=== PATIENT | female | born 1935 | race Caucasian/White ===

== ENCOUNTER 2024-10-24 09:49 | Outpatient (REF) | payer BC, SELFPAY ==
--- OUTSIDE RECORDS SUMMARY | 2024-10-24 12:42 | XMS_ITS ---
Continuity of Care Document (CCD) Created on: October 24, 2024 Sirisha Newton External Reference #: [id number] : [id number] Sex: Female Author Organization [facility] Address [address] [place] [address] Phone [phone] Care Team Providers Care Graphic User Interface Designer Name Role Phone Kenzi. ABRAHAM Singh Care Team Information Plane Captain [phone] Problems Active Problems Provider Date Gastroesophageal reflux [...] Qnty Indications Ordering Provider Date Albuterol Sulfate DND081(90Base) mcg/Act Aerosol Inhale 2 Puffs By Mouth Four Times Daily as Needed For Wheezing Or Shortness Of Unknown Amlodipine Qxywttaf5ge Tablets Take 1 Tablet By Mouth Every Day Unknown Atorvastatin Sadqgby84zi Tablets Take 1 Tablet By Mouth Daily Unknown Umtnmuluqa7po Tablets Take 1 Tablet By Mouth Daily Unknown Metoprolol Succinate ER50mg Tablets ER 24HR Take 1 Tablet By Mouth Daily Unknown Sertraline JYV08kv Tablets Take 1 Tablet By Mouth Daily Kenzi. ABRAHAM Singh Levothyroxine Zdvgwe09ilp Tablets Take 1 Tablet By Mouth Daily Rima Singh. Vital Signs Date Vital Result Comment 07/27/2023 10:45am BP Systolic 130 mmHg BP Diastolic 68 mmHg Heart Rate 83 /min Height 61 inches 5'1 Weight 152.50 lb BMI (Body Mass Index) 28.8 kg/m2 Results Test Acquired Date Facility Test Result H/L Range N ote Calcium 07/27/2023 [facility] Calcium 9.6 mg/dL (8.6-10.5) 25Oh Vitamin D 07/27/2023 [facility] 25Oh Vitamin D 43.4 NG/ML (20-50) Albumin 07/27/2023 [facility] Albumin 4.4 GM/DL (3.4-4.8) Medical [...] N18.9 Chronic kidney disease, unspecified* New Labs:* Qegrx-Ti-Orbbw, Ordered: 07/27/23 * Utvbdwv-Pq-Tsywj, Ordered: 07/27/23 Functional Status Description No Information Available Mental Status Description No Information Available Referrals Description No Information Available
--- OUTSIDE RECORDS SUMMARY | 2024-10-24 12:42 | XMS_ITS | Clinical Summary ---
Author Organization [facility] Address [address] [address] Phone Care Team Providers Care Manager Book Name Role Phone Jamari Lyman MD Primary Care Provider [phone] Allergies Active Allergy Reactions Criticality Noted Date [...] Information Patient not taking.Reported on 05/05/2024 cloNIDine (Inlijmrl-YLR-8 ) 0.1 MG/24HR patch weekly Place 1 [...] Orders Only [facility] [address] [address] Bryson Lozada MD Chronic kidney [...] Office Visit [facility] [address] [address] Bryson Lozada MD [address] [address] Health Maintenance Due Date Last Done Comments Influenza Vaccine (Season Ended) 2025 Pneumococcal Vaccine: 50+ Years Completed 04/27/2016, 12/27/2014, 08/13/2004 Hepatitis B Vaccine Aged Out No longe r eligible based on patient's age to complete this topic Insurance Medicare [facility] Medicare [facility] Care Teams Manager Book Relationship Specialty Start Date End Date Jamari Lyman MD [address] [place] [address] PCP - General Internal Medicine 10/29/23
[2024-10-24 14:07] LABS: MANUAL DIFF FLAG NO
[2024-10-24 14:12] LABS: Basophils Absolute Auto 0.1 X10*3/uL (0.0-0.2); Basophils Percent Auto 0.9 % (0-2); Eosinophils Absolute Auto 0.3 X10*3/uL (0.0-0.4); Hematocrit 43.6 % (37.0-47.0); Imm Gran Pct Auto 1.3 % (0.0-0.4); Lymphocytes Absolute Auto 1.6 X10*3/uL (1.2-4.9); Lymphocytes Percent Auto 20.7 % (20-40); Mean Corpuscular HGB Conc 32.1 g/dl (31.0-35.0); Mean Corpuscular Hemoglobin 31.5 pg (27.0-33.0); Mean Corpuscular Volume 98.2 fL (80.0-98.0); Mean Platelet Volume 10.9 fL (9.4-12.3); Monocytes Absolute Auto 0.5 X10*3/uL (0.1-1.2); Neutrophils Absolute Auto 5.1 x10*3/uL (2.0-8.3); Neutrophils Percent Auto 66.1 % (45-73); Platelet Count 316 X10*3/uL (160-400); Red Blood Count 4.44 X10*6/uL (4.20-5.50); Red Cell Distribution Width 13.2 % (11.0-16.0); White Blood Count 7.7 X10*3/uL (4.8-10.8)
[2024-10-24 14:22] LABS: Estimated Average Glucose 131 mg/dL; Hemoglobin A1C 162.5293 umol/L; Hemoglobin A1c % 6.2 % (<6.0); Total Hemoglobin (HGBA1C) 3718.7342 umol/L
[2024-10-24 14:55] LABS: Alanine Aminotransferase 27 U/L (0-31); Anion Gap 13 (12-20); Aspartate Amino Transferase 32 U/L (5-31); Bilirubin Total 0.5 mg/dL (0.0-1.0); Blood Urea Nitrogen 19 mg/dL (9-16); Calcium 9.2 mg/dL (8.4-10.2); Carbon Dioxide 28 mmol/L (22-29); Chloride 105 mmol/L (96-108); Cholesterol 174 mg/dL (<200); Estimated Glomerular Filt Rate 25; Glucose Random 110 mg/dL (60-115); HDL Cholesterol 53 mg/dL (>40); LDL Cholesterol Calculated 82 mg/dL (<100); Potassium 4.5 mmol/L (3.3-5.1); Sodium 141 mmol/L (135-145); TSH reflex Free T4 5.67 uIU/mL (0.32-4.0); Total Protein 7.4 g/dL (6.5-8.0); Triglycerides 197 mg/dL (<150)
[2024-10-24 15:08] LABS: Alkaline Phosphatase 93 U/L (39-117)
[2024-10-24 15:35] LABS: Free T4 (Free Thyroxine) 0.97 ng/dL (0.71-1.85)
== END 2024-10-24 09:50 | disposition home or self-care (01) ==
LOC: HO.WFDLDS 09:49
PROVIDERS: Visit Provider Internal Medicine
DX: Z76.89 Persons encountering health services in other specified circumstances (principal); I12.9 Hypertensive chronic kidney disease with stage 1 through stage 4 chronic kidney disease, or unspecified chronic kidney disease; E11.22 Type 2 diabetes mellitus with diabetic chronic kidney disease; N18.4 Chronic kidney disease, stage 4 (severe); M54.50 Low back pain, unspecified; G89.29 Other chronic pain; F41.9 Anxiety disorder, unspecified; J44.9 Chronic obstructive pulmonary disease, unspecified; E03.9 Hypothyroidism, unspecified; I25.10 Atherosclerotic heart disease of native coronary artery without angina pectoris; E78.5 Hyperlipidemia, unspecified; Z79.899 Other long term (current) drug therapy
CPT/HCPCS: 36415; 80053; 80061; 83036; 84439; 84443; 85025; 96127

== ENCOUNTER 2024-10-24 09:49 | Outpatient (AMB) | payer BC, SELFPAY ==
--- NOTE | 2024-10-24 09:51 | A.OFFPC_ITS ---
Vital Signs 10/24/24 09:54 Height 5 ft 1.42 in Weight 160 lb BMI 29.8 BP 110/64 Blood Pressure Location Lt brachial Position Sitting Respiration 14 Pulse 68 Pulse Source Pulse Oximeter Temp 98 F Temp Source Oral Pulse Oximetry (%) 94 Oxygen Delivery Method Room Air Intake Visit Reasons: [facility] Intake Note: New patient visit Composition Board Press Operator Required: No Allergies Sulfa (Sulfonamide Antibiotics) Allergy (Unknown, Verified 10/24/24 09:55) Rash Tobacco use date assessed: 10/24/24 Fall risk assessment: No Falls in past year Last assessed Fall Risk: 10/24/24 Dental Screening Dental Screen Date: 10/24/24 Did you have a dental visit in the last 12 months?: Yes Did you have a dental problem in the last 6 months where you did not have access to dental care?: No Was dental information given to patient?: Patient has dentist HPI HPI Comments History of Present Illness Details The patient is an 89 year old female with a past medical history of CAD, MVR, diabetes, CKD stage 4, hyperlipidemia, hypothyroid, COPD, anxiety presenting to reestablish care. Transfer from [facility] CV: Follows with cardiology, Dr Moscoso. History of [place] in 2008. On lipitor, NTG prn, ASA 81, losartan, toprol. Denies chest pain Diabetes: Last A1C 6.6%. CKD followed by Dr Lozada. Secondary hypoparathyroid. COPD: Stable. Not on any medications. Follows with Dr Mcgarry. Hypothyroid-Stable on levothyroxine 50mcg daily -, 100mcg Thursday Has some chronic balance issues. Sometime using cane, walker Anxiety-stable on zoloft Increased low back pain. Makes it difficult for her to walk more than a block to two blocks RSV, Flu vaccine UTD ROS CONSTITUTIONAL: Denies weight loss, fever and chills. HEENT: Denies changes in vision and hearing. RESPIRATORY: Denies SOB and cough. CV: Denies palpitations and CP GI: Denies abdominal pain, nausea, vomiting and diarrhea. : Denies dysuria and urinary frequency. MSK: see HPI SKIN: Denies rash and pruritus. NEUROLOGICAL: Denies headache PSYCHIATRIC: Denies recent changes in mood. PHYSICAL EXAM: GENERAL: Alert and oriented x 3. NAD EYES: EOMI. Anicteric. HENT: Moist mucous membranes. No scleral icterus. No cervical lymphadenopathy. LUNGS: Clear to auscultation bilaterally. CARDIOVASCULAR: Regular rate and rhythm. No murmur. No JVD. ABDOMEN: Soft, non-tender +bs EXTREMITIES: No edema. Non-tender. SKIN: No rashes or lesions. Warm. NEUROLOGIC: No focal neurological deficits. CN II-XII grossly intact PSYCHIATRIC: Cooperative. Appropriate mood and affect [facility] Surgical History H/O heart artery stent H/O tubal ligation Family History Mother Heart attack HTN (hypertension) Father Heart attack Alcoholic Son Diabetes Other Substance abuse Social History Housing: Apartment Alcohol intake: never Patient Tobacco Use Status: Former Tobacco user Cigarette Packs Per Day: 2 Years Smoked: 55 e-Cigarette/Vaping Use: Never Used Second Hand Smoke Exposure: No service: No Current occupational status: retired Cognitive needs: No Hearing needs: Yes (has hearing aids, but is not wearing them) Vision needs: Yes (glasses) Questionnaire PHQ-9 Over the last 2 weeks, how often have you been bothered by any of the following problems? 1. Little interest or pleasure in doing things: not at all 2. Feeling down, depressed, or hopeless: not at all 3. Trouble falling or staying asleep, or sleeping too much: several days 4. Feeling tired or having little energy: more than half the days 5. Poor appetite or overeating: more than half the days 6. Feeling bad about yourself - or that you are a failure or have let yourself or your family down: not at all 7. Trouble concentrating on things, such as reading the newspaper or watching television: not at all 8. Moving or speaking so slowly that other people could have noticed. Or the opposite - being so fidgety or restless that you have been moving around a lot more than usual: not at all 9. Thoughts that you would be better off or of hurting yourself in some way: not at all Total score: 5 Depression Screening Interpretation: Positive Depression Screening Follow-up: Existing condition Depression Screening Done: Yes 11908 - PHQ-9 Billing: Yes Source: Developed by Drs. Serafin Noguera, Mark Colon and colleagues, with an educational milagros from [employer]. Thrive Questionnaire Date Thrive assessed: 10/24/24 I am a: Patient What is your living situation today?: I have a steady place to live Within the past 12 months, did the food you bought not last and you didn't have the money to get more?: Never true Within the past 12 months, did you worry whether your food would run out before you got money to buy more?: Never true Do you have trouble paying for medicines?: No Do you have trouble getting transportation to medical appointments?: No Do you have trouble paying your heating and electricity bill?: No Do you have trouble taking care of your child, family member or friend?: No Do you have trouble with day-to-day activities such as bathing, preparing meals, shopping, managing finances, etc.?: No Are you currently unemployed and looking for a job?: No Are you interested in more education?: No Please select the resources that you would like help with: None Currently or been in a relationship where the following occur: No concerns reported THRIVE Score: 0 AUDIT C Alcohol Use Questionnaire (AUDIT-C) 1. How often do you have a drink containing alcohol?: Never 3. How often do you have six or more drinks on one occasion?: Never Total Score: 0 HOLLI-7 AMB Questionnaire HOLLI-7 Date HOLLI - 7 assessed: 10/24/24 Feeling nervous, anxious, or on edge: 0 = Not at all Not being able to stop or control worryin = Not at all Worrying too much about different things: 0 = Not at all Trouble relaxin = Not at all Being so restless that it is hard to sit still: 0 = Not at all Becoming easily annoyed or irritable: 0 = Not at all Feeling afraid as if something awful might happen: 0 = Not at all Total HOLLI-7 score (0-4 normal; 5-9 mild; 10-14 moderate; 15-21 severe): 0 Source: Developed by Amna Lopez Kurt Kroenke and colleagues, with an educational milagros from [employer]. HOLLI-7 Assessment Billing HOLLI-7 Assessment Tool: HOLLI-7 Assessment 20557 Physical exam (Primary Care) Vital Signs: Last Vital Signs Temp 98 F 10/24/24 09:54 Pulse 68 10/24/24 09:54 Resp 14 10/24/24 09:54 BP 110/64 10/24/24 09:54 Pulse Ox 94 10/24/24 09:54 Oxygen Delivery Method Room Air 10/24/24 09:54 BMI result Body Mass Index 29.8 Tobacco/Smoking Status: Tobacco use Status Tobacco use date assessed 10/24/24 10/24/24 09:53 Patient Tobacco Use Status Former Tobacco user 10/24/24 10:04 e-Cigarette/Vaping Use Never Used 10/24/24 10:04 PHQ-9: PHQ-9 Score PHQ-9: Total score 5 10/24/24 10:06 Depression Screening Interpretation: Positive Depression Screening Follow-up: Existing condition Thrive Assessment: Date of Thrive Assessment Date Thrive assessed 10/24/24 10/24/24 10:04 Currently or been in a relationship where the following occur: No concerns reported Coding Level of Care Code Est Pt Level 4 (23515) Complex EM visit Add On G2211 Diagnoses Primary hypertension I10 Hypertension type: primary hypertension Type 2 diabetes mellitus with stage 4 chronic kidney disease, without long-term current use of insulin E11.22; N18.4 Diabetes mellitus type: type 2 Diabetes mellitus snf insulin use: without snf use Diabetes mellitus complication status: with kidney complications Diabetes mellitus complication detail: with chronic kidney disease Chronic kidney disease stage: stage 4 (GFR 15-29) CKD stage 4 due to type 2 diabetes mellitus E11.22; N18.4 Chronic low back pain, unspecified back pain laterality, unspecified whether sciatica present M54.50; G89.29 Chronicity: chronic Back pain laterality: unspecified Sciatica presence: unspecified whether sciatica present Additional Codes HOLLI-7 Assessment Billing - HOLLI-7 Assessment Tool: HOLLI-7 Assessment 62473 ([id number]) PHQ-9 - 10417 - PHQ-9 Billing: Yes ([id number]) Assessment & Plan Assessment & Plan (1) Hypertension: Code(s): I10 - Essential (primary) hypertension Category: Medical Qualifiers: Hypertension type: primary hypertension Qualified Code(s): I10 - Essential (primary) hypertension (2) Diabetes: Code(s): E11.9 - Type 2 diabetes mellitus without complications Category: Medical Qualifiers: Diabetes mellitus type: type 2 Diabetes mellitus snf insulin use: without snf use Diabetes mellitus complication status: with kidney complications Diabetes mellitus complication detail: with chronic kidney disease Chronic kidney disease stage: stage 4 (GFR 15-29) Qualified Code(s): E11.22 - Type 2 diabetes mellitus with diabetic chronic kidney disease; N18.4 - Chronic kidney disease, stage 4 (severe) (3) CKD stage 4 due to type 2 diabetes mellitus: Code(s): E11.22 - Type 2 diabetes mellitus with diabetic chronic kidney disease; N18.4 - Chronic kidney disease, stage 4 (severe) Category: Medical (4) Low back pain: Code(s): M54.50 - Low back pain, unspecified Category: Medical Qualifiers: Chronicity: chronic Back pain laterality: unspecified Sciatica presence: unspecified whether sciatica present Qualified Code(s): M54.50 - Low back pain, unspecified; G89.29 - Other chronic pain Plan 89 year old to reestablish care Anxiety/depression-stable on zoloft TSH normal Dec-recheck Diabetes-has not required treatment CAD-stable without angina. continue current medications. Monitor K Orders: Orders PT Evaluation and Treatment Today M54.50 - Low back pain, unspecified Complete Blood Count Auto Diff Today E03.9 - Hypothyroidism, unspecified, E11.22 - Type 2 diabetes mellitus with diabetic chronic kidney disease, E11.9 - Type 2 diabetes mellitus without complications, E78.5 - Hyperlipidemia, unspecified, I10 - Essential (primary) hypertension, I25.10 - Atherosclerotic heart disease of [place] coronary artery without angina pectoris, N18.4 - Chronic kidney disease, stage 4 (severe) Comprehensive Met. Panel Today E03.9 - Hypothyroidism, unspecified, E11.22 - Type 2 diabetes mellitus with diabetic chronic kidney disease, E11.9 - Type 2 diabetes mellitus without complications, E78.5 - Hyperlipidemia, unspecified, I10 - Essential (primary) hypertension, I25.10 - Atherosclerotic heart disease of [place] coronary artery without angina pectoris, N18.4 - Chronic kidney disease, stage 4 (severe) Lipid Panel Today E03.9 - Hypothyroidism, unspecified, E11.22 - Type 2 diabetes mellitus with diabetic chronic kidney disease, E11.9 - Type 2 diabetes mellitus without complications, E78.5 - Hyperlipidemia, unspecified, I10 - Essential (primary) hypertension, I25.10 - Atherosclerotic heart disease of [place] coronary artery without angina pectoris, N18.4 - Chronic kidney disease, stage 4 (severe) TSH reflex Free T4 Today E03.9 - Hypothyroidism, unspecified, E11.22 - Type 2 diabetes mellitus with diabetic chronic kidney disease, E11.9 - Type 2 diabetes mellitus without complications, E78.5 - Hyperlipidemia, unspecified, I10 - Essential (primary) hypertension, I25.10 - Atherosclerotic heart disease of [place] coronary artery without angina pectoris, N18.4 - Chronic kidney disease, stage 4 (severe) Hemoglobin A1c Today E03.9 - Hypothyroidism, unspecified, E11.22 - Type 2 diabetes mellitus with diabetic chronic kidney disease, E11.9 - Type 2 diabetes mellitus without complications, E78.5 - Hyperlipidemia, unspecified, I10 - Essential (primary) hypertension, I25.10 - Atherosclerotic heart disease of [place] coronary artery without angina pectoris, N18.4 - Chronic kidney disease, stage 4 (severe) Medications: New sertraline 50 mg PO DAILY 90 tabs 3RF levothyroxine 50 mcg PO DAILY 90 tabs 3RF metoprolol succinate ER 50 mg PO DAILY 90 tabs 3RF levothyroxine Take 1 tab oral Thu thru Thursday. Take 2 tab oral once weekly on Thursday 102 tabs 3RF
[2024-10-24 09:54] VITALS: BP 110/64; PULSE 68; RESP 14; TEMP 36.6; O2SAT 94; BMI 29.8
--- OUTSIDE RECORDS SUMMARY | 2024-10-24 11:10 | XMS_ITS | Continuity of Care Document ---
Author Organization [facility] Address [address] [place] [address] Phone [phone] Care Team Providers Care Escrow Agent Name Role Phone Kenzi. ABRAHAM Singh Care Team Information Mid Level Project Manager [phone] Problems Active Problems Provider Date Gastroesophageal reflux disease ALEK Mann Onset: 07/27/2023 Impairment of balance ALEK Mann Onset: 07/27/2023 Chronic obstructive lung disease ALEK Mann Onset: 07/27/2023 Chronic kidney disease ALEK Mann Onset: 07/27/2023 Hyperlipidemia ALEK Mann Onset: 2023 Essential hypertension ALEK Mann Onset: 07/27/2023 Prediabetes ALEK Mann Onset: 2023 Social History Type Date Description Comments Sex Unknown ETOH Use Denies alcohol use Tobacco Use Start: Unknown End: Unknown Patient is a former smoker Allergies and adverse reactions Active Allergies Criticality Reaction Severity Comments Date Sulfadiazine Unable to assess criticality 07/27/2023 Medications Active Medications SIG Qnty Indications Ordering Provider Date Albuterol Sulfate CKM243(90Base) mcg/Act Aerosol Inhale 2 Puffs By Mouth Four Times Daily as Needed For Wheezing Or Shortness Of Unknown Amlodipine Brrtjxlo7vj Tablets Take 1 Tablet By Mouth Every Day Unknown Atorvastatin Xeigfbh53dn Tablets Take 1 Tablet By Mouth Daily Unknown Hrfwpcbbrw1eu Tablets Take 1 Tablet By Mouth Daily Unknown Metoprolol Succinate ER50mg Tablets ER 24HR Take 1 Tablet By Mouth Daily Unknown Sertraline QQE48uv Tablets Take 1 Tablet By Mouth Daily Kenzi. ABRAHAM Singh Levothyroxine Njibqr05ssj Tablets Take 1 Tablet By Mouth Daily Rima Singh. Vital Signs Date Vital Result Comment 07/27/2023 10:45am BP Systolic 130 mmHg BP Diastolic 68 mmHg Heart Rate 83 /min Height 61 inches 5'1 Weight 152.50 lb BMI (Body Mass Index) 28.8 kg/m2 Results Test Acquired Date Facility Test Result H/L Range N ote Calcium 07/27/2023 [facility] Calcium 9.6 mg/dL (8.6-10.5) 25Oh Vitamin D 07/27/2023 [facility] 25Oh Vitamin D 43.4 NG/ML (20-50) Albumin 07/27/2023 [facility] Albumin 4.4 GM/DL (3.4-4.8) Medical Devices Description No Information Available Encounters Type Date Location Provider Dx Diagnosis Office Visit 07/27/2023 10:30a Main Office ALEK Mann E21.3 Hyperparathyr oidism, unspecified N18.9 Chronic kidney disea se, unspecified Assessments Date Code Description Provider 07/27/2023 E21.3 Hyperparathyroidism, unspeci fied ALEK Mann 07/27/2023 N18.9 Chronic kidney disease, unsp ecified ALEK Mann Plan of Treatment 07/27/2023 - ALEK Mann* E21.3 Hyperparathyroidism, unspecified * N18.9 Chronic kidney disease, unspecified* New Labs:* Whsre-Ty-Jpxji, Ordered: 07/27/23 * Dgdeojk-Bj-Eplox, Ordered: 07/27/23 Functional Status Description No Information Available Mental Status Description No Information Available Referrals Description No Information Available
--- OUTSIDE RECORDS SUMMARY | 2024-10-24 11:10 | XMS_ITS | Clinical Summary ---
Author Organization [facility] Address [address] [address] Phone Care Team Providers Care Dry End Tester Name Role Phone Jamari Lyman MD Primary Care Provider [phone] Allergies Active Allergy Reactions Criticality Noted Date Comments Sulfa Antibiotics 11/25/2022 Medications aspirin (ST HOOD) 81 MG EC tablet Take 81 mg by mouth 1 (one) time each day Active atorvastatin (LIPITOR) 40 MG tablet Take 40 mg by mouth 1 (one) time each day Active LEVOTHYROXINE SODIUM PO Take 0.025 mcg by mouth 1 (one) time each day Active meclizine (ANTIVERT) 25 MG tablet Take 12.5 mg by mouth 3 (three) times a day if needed for dizziness Active metoprolol succinate XL (TOPROL XL) 50 MG 24 hr tablet Take 50 mg by mouth 1 (one) time each day Do not crush or chew. Active Multiple Vitamin (multivitamin) tablet Take 1 tablet by mouth 1 (one) time each day Active nitroglycerin (NITROSTAT) 0.[address] 0.4 mg under the tongue every 5 (five) minutes if needed for chest pain Active sertraline (ZOLOFT) 50 MG tablet Take 50 mg by mouth 1 (one) time each day Active Cholecalciferol (Vitamin D) 25 MCG (1000 UT) tablet Take 1,000 mcg by mouth 1 (one) time each day Active furosemide (LASIX) 20 MG tablet Take 20 mg by mouth in the morning and 20 mg in the evening. Active amLODIPine (NORVASC) 5 MG tablet Take 1 tablet (5 mg total) by mouth 1 (one) time each day 90 tablet 3 4 10/29/19 25 Active Additional Information Patient not taking.Reported on 05/05/2024 cloNIDine (Ksgqnkby-GXT-5 ) 0.1 MG/24HR patch weekly Place 1 patch on the skin per week 13 patch 3 Active Active Problems Problem Noted Date Diagnosed Date Hypothyroidism 10/29/2023 Chronic kidney disease, stage 4 (severe) 024 Hypertensive heart and chron ic kidney disease without heart failure, with stage 1 through stage 4 chronic kidney disease, or unspecified chronic kidney disease 10/29/2023 Edema 10/29/2023 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/29/2023 Encounters Date Type Department Care Team Description 09/15/2024 Orders Only [facility] [address] [address] Bryson Lozada MD Chronic kidney disease, stage 4 (severe) (HCC); Hypertensive heart and chronic kidney disease without heart failure, with stage 1 through stage 4 chronic kidney disease, or unspecified chronic kidney disease from Last 3 Months Family History Medical History Relation Comments Hypertension Mother Relation Status Comments Mother Social History Tobacco Use Types Packs/Day Years Used Date Smoking Tobacco: Never Smokeless Tobacco: Never Tobacco Cessation:Counseling Given: Not Answered Alcohol Use Standard Drinks/Week Comments Never 0 (1 standard drink = 0.6 oz pur e alcohol) Comments Unknown Sex and Gender Information Value Date Recorded Sex Assigned at Not on file Legal Sex Female 2:51 PM EDT Gender Identity Not on file Sexual Orientation Not on file Last Filed Vital Signs Vital Sign Reading Time Taken Comments Blood Pressure 136/71 05/05/2024 2:03 PM EST Pulse 70 05/05/2024 2:03 PM EST Temperature - - Respiratory Rate - - Oxygen Saturation - - Inhaled Oxygen Concentration - - Weight 71.7 kg (158 lb) 05/05/2024 2:03 PM EST Height - - Body Mass Index - - Plan of Treatment Upcoming Encounters Date Type Department Care Team (Late st Contact Info) Description 11/03/2024 3:00 PM EDT Office Visit [facility] [address] [address] Bryson Lozada MD [address] [address] Health Maintenance Due Date Last Done Comments Influenza Vaccine (Season Ended) 2025 Pneumococcal Vaccine: 50+ Years Completed 04/27/2016, 12/27/2014, 08/13/2004 Hepatitis B Vaccine Aged Out No longe r eligible based on patient's age to complete this topic Insurance Medicare [facility] Medicare [facility] Care Teams Dry End Tester Relationship Specialty Start Date End Date Jamari Lyman MD [address] [place] [address] PCP - General Internal Medicine 10/29/23
== END 2024-10-24 10:27 | disposition home or self-care (01) ==
LOC: HO.HMCFM 09:50
PROVIDERS: Visit Provider Internal Medicine
DX: I12.9 Hypertensive chronic kidney disease with stage 1 through stage 4 chronic kidney disease, or unspecified chronic kidney disease (principal); E11.22 Type 2 diabetes mellitus with diabetic chronic kidney disease; N18.4 Chronic kidney disease, stage 4 (severe); M54.50 Low back pain, unspecified; G89.29 Other chronic pain

== ENCOUNTER 2025-02-21 11:24 | Outpatient (AMB) | payer MEDICARE, BC, SELFPAY ==
--- NOTE | 2025-02-21 11:37 | A.OFFPC_ITS ---
Vital Signs 02/21/25 11:42 Height 5 ft 1.42 in Weight 166 lb BMI 30.9 BP 126/62 Blood Pressure Location Lt brachial Position Sitting Respiration 14 Pulse 71 Pulse Source Pulse Oximeter Pulse Oximetry (%) 95 Oxygen Delivery Method Room Air Intake Visit Reasons: DM 1/2 h Intake Note: Diabetes follow up Photographic Equipment Inspector Required: No Allergies Sulfa (Sulfonamide Antibiotics) Allergy (Unknown, Verified 02/21/25 11:39) Rash Tobacco use date assessed: 02/21/25 Fall risk assessment: No Falls in past year Last assessed Fall Risk: 02/21/25 Dental Screening Dental Screen Date: 10/24/24 HPI HPI Comments History of Present Illness Details The patient is an 89 year old female with a past medical history of CAD, MVR, diabetes, CKD stage 4, hyperlipidemia, hypothyroid, COPD, anxiety [facility] CV: Follows with cardiology, Dr Moscoso. History of MA in 2008. On lipitor, NTG prn, ASA 81, losartan, toprol. Denies chest pain Diabetes: Last A1C 6.1%. 6.6%. CKD followed by Dr Lozada. Secondary hyp oparathyroid. COPD: Stable. Not on any medications. Follows with Dr Mcgarry. Hypothyroid-Stable on levothyroxine 50mcg daily , 100mcg Thursday Has some chronic balance issues. Sometime using cane, walker Anxiety-stable on zoloft Increased low back pain. Makes it difficult for her to walk more than a block to two blocks RSV, Flu vaccine UTD ROS CONSTITUTIONAL: Denies weight loss, fever and chills. HEENT: Denies changes in vision and hearing. RESPIRATORY: Denies SOB and cough. CV: Denies palpitations and CP GI: Denies abdominal pain, nausea, vomiting and diarrhea. : Denies dysuria and urinary frequency. MSK: see HPI SKIN: Denies rash and pruritus. NEUROLOGICAL: Denies headache PSYCHIATRIC: Denies recent changes in mood. PHYSICAL EXAM: GENERAL: Alert and oriented x 3. NAD EYES: EOMI. Anicteric. HENT: Moist mucous membranes. No scleral icterus. No cervical lymphadenopathy. LUNGS: Clear to auscultation bilaterally. CARDIOVASCULAR: Regular rate and rhythm. No murmur. No JVD. ABDOMEN: Soft, non-tender +bs EXTREMITIES: No edema. Non-tender. SKIN: No rashes or lesions. Warm. NEUROLOGIC: No focal neurological deficits. CN II-XII grossly intact PSYCHIATRIC: Cooperative. Appropriate mood and affect [facility] Surgical History H/O heart artery stent H/O tubal ligation Family History Mother Heart attack HTN (hypertension) Father Heart attack Alcoholic Son Diabetes Other Substance abuse Social History Housing: Apartment Alcohol intake: never Patient Tobacco Use Status: Former Tobacco user Cigarette Packs Per Day: 2 Years Smoked: 55 e-Cigarette/Vaping Use: Never Used Second Hand Smoke Exposure: No service: No Current occupational status: retired Cognitive needs: No Hearing needs: Yes (has hearing aids, but is not wearing them) Vision needs: Yes (glasses) Questionnaire Thrive Questionnaire Date Thrive assessed: 10/24/24 I am a: Patient What is your living situation today?: I have a steady place to live Within the past 12 months, did the food you bought not last and you didn't have the money to get more?: Never true Within the past 12 months, did you worry whether your food would run out before you got money to buy more?: Never true Do you have trouble paying for medicines?: No Do you have trouble getting transportation to medical appointments?: No Do you have trouble paying your heating and electricity bill?: No Do you have trouble taking care of your child, family member or friend?: No Do you have trouble with day-to-day activities such as bathing, preparing meals, shopping, managing finances, etc.?: No Are you currently unemployed and looking for a job?: No Are you interested in more education?: No Please select the resources that you would like help with: None Currently or been in a relationship where the following occur: No concerns reported THRIVE Score: 0 HOLLI-7 AMB Questionnaire HOLLI-7 Date HOLLI - 7 assessed: 10/24/24 Source: Developed by Drs. Serafin Noguera, Amna Hernández, Mark Lawrence and colleagues, with an educational milagros from [employer]. Physical exam (Primary Care) BMI result Body Mass Index 30.9 Tobacco/Smoking Status: Tobacco use Status Tobacco use date assessed 10/24/24 02/21/25 11:37 Patient Tobacco Use Status Former Tobacco user 02/21/25 11:37 e-Cigarette/Vaping Use Never Used 02/21/25 11:37 Thrive Assessment: Date of Thrive Assessment Date Thrive assessed 10/24/24 02/21/25 11:37 Currently or been in a relationship where the following occur: No concerns reported Results AMB Hemoglobin A1c AMB Hemoglobin A1c 6.1 % Last Edit by Radha Dyer CMA on 02/21/25 11:54 Coding Assessment & Plan Assessment & Plan Orders: Orders TSH reflex Free T4 Today E03.9 - Hypothyroidism, unspecified, E11.22 - Type 2 diabetes mellitus with diabetic chronic kidney disease, I10 - Essential (primary) hypertension, N18.4 - Chronic kidney disease, stage 4 (severe) Comprehensive Met. Panel Today E03.9 - Hypothyroidism, unspecified, E11.22 - Type 2 diabetes mellitus with diabetic chronic kidney disease, I10 - Essential (primary) hypertension, N18.4 - Chronic kidney disease, stage 4 (severe) Lipid Panel Today E03.9 - Hypothyroidism, unspecified, E11.22 - Type 2 diabetes mellitus with diabetic chronic kidney disease, I10 - Essential (primary) hypertension, N18.4 - Chronic kidney disease, stage 4 (severe) AMB Hemoglobin A1c Today E11.22 - Type 2 diabetes mellitus with diabetic chronic kidney disease, N18.4 - Chronic kidney disease, stage 4 (severe) Referrals Speech and Hearing Referral H91.90 - Unspecified hearing loss, unspecified ear Ear/Nose/Throat Referral H91.90 - Unspecified hearing loss, unspecified ear Podiatry Referral M79.673 - Pain in unspecified foot Medications: New prednisone 10 mg PO DAILY 5 tabs 0RF
[2025-02-21 11:42] VITALS: BP 126/62; PULSE 71; RESP 14; O2SAT 95; BMI 30.9
--- OUTSIDE RECORDS SUMMARY | 2025-02-21 12:21 | XMS_ITS | Clinical Summary ---
Author Organization [facility] Address [address] [address] Phone Care Team Providers Care Primer Press Operator Name Role Phone Sirisha Mendoza MD Primary Care Provider [phone] Allergies Active Allergy Reactions Criticality Noted Date Comments Sulfa Antibiotics 11/25/2022 Medications aspirin (ST HOOD) 81 MG EC tablet Take 81 mg by mouth 1 (one) time each day Active atorvastatin (LIPITOR) 40 MG tablet Take 40 mg by mouth 1 (one) time each day Active LEVOTHYROXINE SODIUM PO Take 0.025 mcg by mouth 1 (one) time each day Active metoprolol succinate XL (TOPROL XL) 50 [...] mouth 1 (one) time each day Active cloNIDine (Jslyooer-NUP-1 ) 0.1 MG/24HR patch weekly Place 1 patch on the skin per week 13 patch 3 10/29/2023 Active losartan (COZAAR) 25 MG tablet Take 25 mg by mouth 1 (one) time each day Active Active Problems Problem Noted Date Diagnosed Date Hypothyroidism 10/29/2023 Chronic kidney disease, stage 4 (severe) 024 Hypertensive heart and chron ic kidney disease without heart failure, with stage 1 through stage 4 chronic kidney disease, or unspecified chronic kidney disease 10/29/2023 Edema 10/29/2023 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/29/2023 Family History Medical History Relation Comments Hypertension [...] Sign Reading Time Taken Comments Blood Pressure 118/66 11/03/2024 2:55 PM EDT Pulse 70 11/03/2024 2:55 PM EDT Temperature - - Respiratory Rate - - Oxygen Saturation - - Inhaled Oxygen Concentration - - Weight 72.6 kg (160 lb) 11/03/2024 2:55 PM EDT Height - - Body Mass Index - - Plan of Treatment Upcoming Encounters Date Type Department Care Team (Late st Contact Info) Description 07/06/2025 1:15 PM EST Office Visit [facility] [address] [place] [address] Bryson Lozada MD [address] [address] Health Maintenance Due Date Last Done Comments Influenza Vaccine (#1) 2025 Pneumococcal Vaccine: 50+ Years Completed 04/27/2016, 12/27/2014, 08/13/2004 Hepatitis B Vaccine Aged Out No longe r eligible based on patient's age to complete this topic Insurance Medicare [facility] Medicare [facility] Care Teams Primer Press Operator Relationship Specialty Start Date End Date Sirisha Mendoza MD [address] [place] [phone] PCP - General Internal Medicine 11/03/24
--- OUTSIDE RECORDS SUMMARY | 2025-02-21 12:21 | XMS_ITS | Continuity of Care Document ---
Author Organization [facility] Address [address] [place] [address] Phone [phone] Care Team Providers Care Trucker Hand Name Role Phone Rima Singh. Care Team Information Gi Physician [phone] Problems Active Problems Provider Date Gastroesophageal reflux disease ALEK Mann Onset: 07/27/2023 Impairment of balance ALEK Mann Onset: 07/27/2023 Chronic obstructive lung disease ALEK Mann Onset: 07/27/2023 Chronic kidney disease ALEK Mann Onset: 07/27/2023 Hyperlipidemia ALEK Mann Onset: 2023 Essential hypertension ALEK Mann Onset: 07/27/2023 Prediabetes ALEK Mann Onset: 2023 Social History Type Date Description Comments Sex Female Sex Unknown ETOH Use Denies alcohol use Tobacco Use Start: Unknown End: Unknown Patient is a former smoker Allergies and adverse reactions Active Allergies Criticality Reaction Severity Comments Date Sulfadiazine Unable to assess criticality 07/27/2023 Medications Active Medications SIG Qnty Indications Ordering Provider Date Albuterol Sulfate CBB233(90Base) mcg/Act Aerosol Inhale 2 Puffs By Mouth Four Times Daily as Needed For Wheezing Or Shortness Of Unknown Amlodipine Brupliua3kx Tablets Take 1 Tablet By Mouth Every Day Unknown Atorvastatin Uxzoufq32pm Tablets Take 1 Tablet By Mouth Daily Unknown [id number] Tablets Take 1 Tablet By Mouth Daily Unknown Metoprolol Succinate ER50mg Tablets ER 24HR Take 1 Tablet By Mouth Daily Unknown Sertraline HHG96qy Tablets Take 1 Tablet By Mouth Daily Rima Singh. Levothyroxine [id number] Tablets Take 1 Tablet By Mouth Daily Rima Singh. Vital Signs Date Vital Result Comment 07/27/2023 10:45am BP Systolic 130 mmHg BP Diastolic 68 mmHg Heart Rate 83 /min Height 61 inches 5'1 Weight 152.50 lb BMI (Body Mass Index) 28.8 kg/m2 Results Test Acquired Date Facility Test Result H/L Range N ote Calcium 07/27/2023 [facility] Calcium 9.6 mg/dL (8.6-10.5) 25Oh Vitamin D 07/27/2023 [facility] 25Oh Vitamin D 43.4 NG/ML (20-50) Albumin 07/27/2023 [facility] Albumin 4.4 GM/DL (3.4-4.8) [...] N18.9 Chronic kidney disease, unspecified* New Labs:* [id number], Ordered: 07/27/23 * [id number], Ordered: 07/27/23 Functional Status Description No Information Available Mental Status Description No Information Available Referrals Description No Information Available
--- OUTSIDE RECORDS SUMMARY | 2025-02-21 12:21 | XMS_ITS ---
Author Name [facility] Organization Unknown Care Team Organization Name Specialty Phone Email Start Date End Da te [facility] Termed, PROVIDER Primary Care 05/06/202201/27
== END 2025-02-21 12:09 | disposition home or self-care (01) ==
LOC: HO.HMCFM 11:25
PROVIDERS: PCP Internal Medicine; Visit Provider Internal Medicine
DX: E11.22 Type 2 diabetes mellitus with diabetic chronic kidney disease (principal); N18.4 Chronic kidney disease, stage 4 (severe)

== ENCOUNTER 2025-02-21 11:24 | Outpatient (REF) | payer MEDICARE, BC, SELFPAY ==
[2025-02-21 19:21] LABS: Alanine Aminotransferase 35 U/L (0-31); Albumin Level 4.0 g/dL (3.5-5.0); Alkaline Phosphatase 106 U/L (39-117); Anion Gap 15 (12-20); Aspartate Amino Transferase 33 U/L (5-31); Blood Urea Nitrogen 26 mg/dL (9-16); Calcium 9.3 mg/dL (8.4-10.2); Carbon Dioxide 26 mmol/L (22-29); Chloride 106 mmol/L (96-108); Cholesterol 145 mg/dL (<200); Estimated Glomerular Filt Rate 16; HDL Cholesterol 47 mg/dL (>40); Potassium 4.9 mmol/L (3.3-5.1); Sodium 142 mmol/L (135-145); Total Protein 7.1 g/dL (6.5-8.0); Triglycerides 215 mg/dL (<150)
== END 2025-02-21 11:25 | disposition home or self-care (01) ==
LOC: HO.WFDLDS 11:24
PROVIDERS: PCP Internal Medicine; Visit Provider Internal Medicine
DX: E11.22 Type 2 diabetes mellitus with diabetic chronic kidney disease (principal); I12.9 Hypertensive chronic kidney disease with stage 1 through stage 4 chronic kidney disease, or unspecified chronic kidney disease; N18.4 Chronic kidney disease, stage 4 (severe); E03.9 Hypothyroidism, unspecified; I25.10 Atherosclerotic heart disease of native coronary artery without angina pectoris
CPT/HCPCS: 36415; 80053; 80061; 83036; 84443; 99212